=== PATIENT | male | born 2000 | race Asian ===

== ENCOUNTER 2023-12-25 22:40 | Emergency (ER) | payer OTHER ==
[~2023-12-25] VITALS: Ht 172.7 cm; Wt 104.5 kg
[2023-12-25 22:42] VITALS: TEMP 98.2
[2023-12-25 23:06] VITALS: BP 138/81; PULSE 91; RESP 16
[2023-12-26] MEDS ORDERED: BACITRACIN 28 GM OINTMENT TP ONE ×2 (01:25→01:45)
[2023-12-26] MEDS ORDERED: BACITRACIN 0.9 GM PACKET OINTMENT TP ONE (01:45)
== END 2023-12-26 01:32 | disposition home or self-care (01) ==
LOC: EMS 22:40
DX: S90.32XA Contusion of left foot, initial encounter (principal); S90.31XA Contusion of right foot, initial encounter; S50.01XA Contusion of right elbow, initial encounter; X58.XXXA Exposure to other specified factors, initial encounter; Y93.89 Activity, other specified; Y92.89 Other specified places as the place of occurrence of the external cause; Y99.8 Other external cause status
CPT/HCPCS: 99284